=== PATIENT | female | born 1970 | race Two or more races ===

== ENCOUNTER 2018-09-11 23:21 | Emergency (ER) | payer OTHER ==
[~2018-09-11] VITALS: Ht 160 cm; Wt 130.6 kg
[2018-09-11] MEDS ORDERED: PROCHLORPERAZINE5 MG (23:59)
[2018-09-11] MEDS ORDERED: GUAIATUSSIN AC10 ML (23:59)
[2018-09-12] MEDS ORDERED: MELOXICAM7.5 MG (00:01)
[2018-09-12] MEDS ORDERED: CELECOXIB200 MG PO (03:34)
== END 2018-09-12 04:32 | disposition home or self-care (01) ==
LOC: ER 23:21
DX: M25.522 Pain in left elbow (principal)